=== PATIENT | male | born 1975 | race Caucasian/White ===

== ENCOUNTER 2016-08-14 11:19 | Emergency (ER) | payer OTHER ==
--- NOTE | 2016-08-14 12:34 | Emergency Department Record ---
Anxiety - General Chief Complaint: Anxiety Stated Complaint: ANXIETY Time Seen by Provider: 08/14/16 12:20 Source: Patient Mode of Arrival: Ambulatory - History of Present Illness Initial Comments: The patient admits he has been battling with depression since 2010 and is currently having a rougher time with anxiety at his job. this morning he was so worked up he vomited due to his anxiety and he wishes something for it. He is a patient of Dr. Kate and is scheduled to see her 08-22-16 for his ADHD. He denies suicidal thoughts or ideation, homicidal thoughts. HE wishes an excuse for his work today as well. Onset/Timin -: Days(s) Severity: Moderate Quality: Constant Provoking factors: None known, Work/job stress Improves With: Nothing Worsens With: Nothing Associated symptoms: Fever/chills - Related Data Home Medications: Home Medications Medication Instructions Recorded Confirmed Last Taken Hydroxyzine HCl 50 mg PO ASDIR PRN 08/14/16 08/14/16 Unknown Previous Rx's Medication Instructions Recorded Lorazepam [Ativan] 0.5 mg PO BID #10 tablet 08/14/16 Allergies/Adverse Reactions: Allergies Allergy/AdvReac Type Severity Reaction Status Date / Time No Known Drug Allergies Allergy Unverified 05/17/16 12:32 Travel Screening - Travel/Exposure Within Last 30 Days Have you traveled within the last 30 days?: No - Travel/Exposure Within Last Year Have you traveled outside the [place] in the last year?: No - Additonal Travel Details Have you been exposed to anyone with a communicable illness?: No - Travel Symptoms Symptom Screening: None Review of Systems Reviewed: No additional complaints except as noted below Constitutional: Reports: As per HPI. Denies: Chills, Fever, Malaise, Night sweats, Weakness, Weight change Eyes: Reports: As per HPI. Denies: Eye discharge, Eye pain, Photophobia, Vision change ENT: Reports: As per HPI. Denies: Congestion, Dental pain, Ear pain, Epistaxis , Hearing loss, Throat pain Respiratory: Reports: As per HPI. Denies: Cough, Dyspnea, Hemoptysis, Stridor, Wheezes Cardiovascular: Reports: As per HPI. Denies: Arrhythmia, Chest pain, Dyspnea on exertion, Edema, Murmurs, Orthopnea, Palpitations, Paroxysmal nocturnal dyspnea, Rheumatic Fever, Syncope Endocrine: Reports: As per HPI. Denies: Fatigue, Heat or cold intolerance, Polydipsia, Polyuria Gastrointestinal: Reports: As per HPI. Denies: Abdominal pain, Constipation, Diarrhea, Hematemesis, Hematochezia, Melena, Nausea, Vomiting Genitourinary: Reports: As per HPI. Denies: Dysuria, Frequency, Hematuria, Incontinence, Retention, Testicular pain, Testicular mass, Urgency Musculoskeletal: Reports: As per HPI. Denies: Arthralgia, Back pain, Gout, Joint swelling, Myalgia, Neck pain Skin: Reports: As per HPI. Denies: Bruising, Change in color, Change in hair/ nails, Lesions, Pruritus, Rash Neurological: Reports: As per HPI. Denies: Abnormal gait, Confusion, Headache, Numbness, Paresthesias, Seizure, Tingling, Tremors, Vertigo, Weakness Psychiatric: Reports: As per HPI. Denies: Anxiety, Auditory hallucinations, Depression, Homicidal thoughts, Suicidal thoughts, Visual hallucinations Hematological/Lymphatic: Reports: As per HPI. Denies: Anemia, Blood Clots, Easy bleeding, Easy bruising, Swollen glands Past Medical History - SOCIAL HISTORY Smoking Status: Current every day smoker Alcohol Use: Rare Drug Use: Heavy Drug Use Detail:: Marijuana - RESPIRATORY Hx Respiratory Disorders: No - CARDIOVASCULAR Hx Cardio Disorders: No - NEURO Hx Neuro Disorders: Yes Hx Seizures: Yes (2013) - GI Hx GI Disorders: Yes Hx Crohn's Disease: Yes - Hx Genitourinary Disorders: No - ENDOCRINE Hx Endocrine Disorders: No - MUSCULOSKELETAL Hx Musculoskeletal Disorders: No - PSYCH Hx Psych Problems: Yes Hx Anxiety: Yes Hx Depression: Yes Comment:: ADD - HEMATOLOGY/ONCOLOGY Hx Hematology/Oncology Disorders: No Family Medical History Any Significant Family History?: No Hx Diabetes: Father Hx Heart Disease: Mother Physical Exam - General General Appearance: Alert, Oriented x3, Cooperative, No acute distress, Anxious - Head Head exam: Normal inspection - Eye Eye exam: Normal appearance, PERRL Pupils: Normal accommodation - ENT ENT exam: Normal exam, Mucous membranes moist, Normal external ear exam, Normal orophraynx, TM's normal bilaterally Ear exam: Normal external inspection. negative: External canal tenderness Nasal Exam: Normal inspection. negative: Discharge, Sinus tenderness Mouth exam: Normal external inspection, Tongue normal Teeth exam: Normal inspection. negative: Dental caries Throat exam: Normal inspection. negative: Tonsillar erythema, Tonsillar exudate - Neck Neck exam: Normal inspection, Full ROM. negative: Tenderness - Respiratory Respiratory exam: Normal lung sounds bilaterally. negative: Respiratory distress - Cardiovascular Cardiovascular Exam: Regular rate, Normal rhythm, Normal heart sounds - GI/Abdominal GI/Abdominal exam: Soft, Normal bowel sounds. negative: Tenderness - Rectal Rectal exam: Deferred - exam: Deferred - Extremities Extremities exam: Normal inspection, Full ROM, Normal capillary refill. negative: Tenderness - Back Back exam: Reports: Normal inspection, Full ROM. Denies: Muscle spasm, Rash noted, Tenderness - Neurological Neurological exam: Alert, Normal gait, Oriented X3, Reflexes normal - Psychiatric Psychiatric exam: Normal affect, Normal mood - Skin Skin exam: Dry, Intact, Normal color, Warm Course Vital Signs 08/14/16 11:21 Temperature 97.9 F Pulse Rate 94 H Respiratory 24 Rate Blood Pressure 154/96 Pulse Ox 96 Medical Decision Making - Management Options MDM Management: No Additional Work-up Planned Disposition Disposition: Discharge Clinical Impression: Anxiety and depression Instructions: Social Anxiety Disorder (ED), Generalized Anxiety Disorder (ED), Depression (ED) Additional Instructions: Follow up with Dr. Piña as previously arranged without fail. Take ativan 0.5 mg twice daily IF NEEDED for anxiety. Off work today. [facility] phone numbers for emergency services for anxiety and depression. Prescriptions: Lorazepam [Ativan] 0.5 mg PO BID #10 tablet Forms: Patient Portal Access
== END 2016-08-14 12:55 | disposition home or self-care (01) ==
LOC: ER 11:19
DX: F41.8 Other specified anxiety disorders (principal); R11.11 Vomiting without nausea
CPT/HCPCS: 99282

== ENCOUNTER 2017-08-20 07:11 | Emergency (ER) | payer SELFPAY ==
[2017-08-20] MEDS ORDERED: ONDANSETRON HCL IV 4 MG/2 ML VIAL IVP ONE ×2 (07:19→10:43)
[2017-08-20] MEDS ORDERED: 0.9 % SODIUM CHLORIDE 1,000 ML BAG IV ONE (07:19)
[2017-08-20] MEDS ORDERED: MORPHINE SULFATE 4MG/ML PREFILLED SYRINGE IVP ONE (07:19)
--- NOTE | 2017-08-20 07:26 | Emergency Department Record ---
History of Present Illness - General Chief Complaint: Abdominal Pain Stated Complaint: ABD PAIN Time Seen by Provider: 08/20/17 07:18 Source: Patient Mode of Arrival: Ambulatory Limitations: No limitations - History of Present Illness Initial Comments: 42 yo male presents with abdominal pain, nausea, vomiting since 11pm. He states he has Crohn's that was diagnosed in 2006. He was treated at that time but states he did not tolerate the medications and has not been treated for about 10 years. No blood in the vomit or stools. His stools are firm and formed and very small. His last BM was this morning again firm, small. No history of abdominal surgery. No recent illness. No other cough, shortness of breath, chest pain or recent symptoms. His pain is crampy, sharp and mostly upper abdomen. No fever. MD Complaint: Abdominal pain -: Hour(s) Location: Epigastric Radiation: LUQ, RUQ Migration to: LUQ, RUQ Severity: Moderate Quality: Sharp Improves With: Nothing Worsens With: Nothing Associated Symptoms: Anorexia, Vomiting - Related Data Home Medications Medication Instructions Recorded Confirmed Last Taken No Home Med [NO HOME MEDS] 08/20/17 08/20/17 Unknown Allergies Allergy/AdvReac Type Severity Reaction Status Date / Time No Known Drug Allergies Allergy Verified 08/20/17 07:19 Travel Screening - Travel/Exposure Within Last 30 Days Have you traveled within the last 30 days?: No Review of Systems Constitutional: Denies: Chills, Fever, Malaise, Weakness Eyes: Denies: Eye discharge ENT: Denies: Congestion, Throat pain Respiratory: Denies: Cough, Dyspnea, Hemoptysis, Stridor, Wheezes Cardiovascular: Denies: Chest pain, Palpitations, Syncope Endocrine: Denies: Fatigue, Polydipsia, Polyuria Gastrointestinal: Reports: Abdominal pain, Nausea, Vomiting. Denies: Diarrhea Genitourinary: Denies: Dysuria, Frequency, Hematuria Musculoskeletal: Denies: Arthralgia, Back pain, Myalgia, Neck pain Skin: Denies: Bruising, Change in color, Rash Neurological: Denies: Confusion, Headache, Numbness, Weakness Psychiatric: Denies: Anxiety Hematological/Lymphatic: Denies: Blood Clots, Easy bleeding, Easy bruising, Swollen glands Past Medical History - SOCIAL HISTORY Smoking Status: Current every day smoker Alcohol Use: None Drug Use: Occasional Drug Use Detail:: Marijuana - RESPIRATORY Hx Respiratory Disorders: No - CARDIOVASCULAR Hx Cardio Disorders: No - NEURO Hx Neuro Disorders: Yes Hx Seizures: Yes (2013) - GI Hx GI Disorders: Yes Hx Crohn's Disease: Yes - Hx Genitourinary Disorders: No - ENDOCRINE Hx Endocrine Disorders: No - MUSCULOSKELETAL Hx Musculoskeletal Disorders: No - PSYCH Hx Psych Problems: Yes Hx Anxiety: Yes Hx Depression: Yes Comment:: ADD - HEMATOLOGY/ONCOLOGY Hx Hematology/Oncology Disorders: No Family Medical History Any Significant Family History?: Yes Hx Diabetes: Father Hx Heart Disease: Mother Physical Exam - General General Appearance: Alert, Oriented x3, Cooperative, No acute distress Limitations: No limitations - Head Head exam: Atraumatic, Normal inspection - Eye Eye exam: Normal appearance, PERRL. negative: Conjunctival injection, Scleral icterus - ENT ENT exam: Normal exam, Mucous membranes moist Ear exam: Normal external inspection Nasal Exam: Normal inspection Mouth exam: Normal external inspection Teeth exam: Normal inspection Throat exam: Normal inspection - Neck Neck exam: Normal inspection, Full ROM. negative: Tenderness - Respiratory Respiratory exam: Normal lung sounds bilaterally. negative: Respiratory distress, Rhonchi, Stridor, Wheezes - Cardiovascular Cardiovascular Exam: Regular rate, Normal rhythm, Normal heart sounds - GI/Abdominal GI/Abdominal exam: Soft, Tenderness (tender across the upper abdomen but very soft, no obvious mass). negative: Distended, Guarding, Rebound, Rigid - Rectal Rectal exam: Deferred - exam: Deferred - Extremities Extremities exam: Normal inspection, Full ROM, Normal capillary refill. negative: Tenderness - Back Back exam: Reports: Normal inspection, Full ROM. Denies: Muscle spasm, Rash noted, Tenderness - Neurological Neurological exam: Alert, Normal gait, Oriented X3 - Psychiatric Psychiatric exam: Normal affect, Normal mood - Skin Skin exam: Dry, Intact, Normal color, Warm Course Vital Signs 08/20/17 07:15 Pulse Rate 86 Respiratory 20 Rate Blood Pressure 146/110 Pulse Ox 100 - Reevaluation(s) Reevaluation #1: No prior abdominal imaging on the EMR 08/20/17 07:27 08/20/17 07:55 The labs were reviewed. WBC count is 14.7 The CMP was reviewed. Mild increase in AG otherwise negative Lipase is normal 08/20/17 10:[address] scan was reviewed. Abnormal dilated distal small bowel with a small bowel feces sign with fibro proliferative changes of the wall may be signs of Crohn's. 08/20/17 10:[address] with the radiologist and confirmed the patient has never had abdominal surgery. His right colon is not visible suggesting either congenital abscess or fistula from small bowel to large bowel from chronic inflammation. His pain and nausea continue. He will require further care and work up. Small bowel follow through / CT enterography possibly. No GI or surgery available at [facility] at this time I SW Dr Levi of at [facility] She will accept the patient for transfer and additional work up 08/20/17 10:43 The pain and nausea are returning Ofirmderick and Norberto ordered Waiting for a bed assignment at [facility] Dr Carlisle notified at the request of Dr Levi of a pending transfer and consultation. 08/20/17 11:17 I offered ambulance transport The patient declined He is stable for transport by car. He has been ambulatory to the bathroom. Stable. Medical Decision Making - Lab Data Result diagrams: 08/20/17 07:29 08/20/17 07:29 Disposition Disposition: Transfer Clinical Impression: Vomiting, Crohns disease, Abdominal pain Disposition: Acute Care Hospital Transfer Transfer To: [facility] Reason For Transfer: GI and Surgery consult Accepting Physician: Gurmeet Time Discussed w/Accepting Physician: 10:33 Condition: (2) Stable Forms: Patient Portal Access Time of Disposition: 10:33 Quality - Quality Measures Quality Measures: N/A - Blood Pressure Screening Does Patient Have Any of the Following: No Blood Pressure Classification: Hypertensive Reading Systolic Measurement: 146 Diastolic Measurement: 110 Screening for High Blood Pressure: < Pre-Hypertensive BP, F/U Documented > [ G8950] Pre-Hypertensive Follow-up Interventions: Referral to alternative/primary care provider.
[2017-08-20 07:36] LABS: HEMATOCRIT 45.1 % (42.0-52.0); HEMOGLOBIN 16.2 gm/dl (14.0-18.0); MEAN CELL VOLUME 87.1 fl (81-97); MEAN CORPUSCULAR HEMOGLOBIN 31.3 pg (27-33); MEAN CORPUSCULAR HGB CONC 35.9 g/dl (32-36); MEAN PLATELET VOLUME 9.7 fl (7.4-10.4); PLATELET COUNT 379 K/uL (130-400); RED BLOOD COUNT 5.18 M/uL (4.40-5.70); RED CELL DISTRIBUTION WIDTH 12.7 % (11.5-14.5); WHITE BLOOD COUNT W/O DIFF 14.7 K/uL (4.2-12.2)
[2017-08-20 07:46] LABS: BLOOD UREA NITROGEN 11 mg/dL (6-20); CREATININE 0.6 mg/dL (0.7-1.2); EST GLOMERULAR FILTRATION RATE > 60 mL/min; TOTAL PROTEIN 7.8 g/dL (6.6-8.7)
[2017-08-20 07:48] LABS: GLUCOSE,RANDOM 146 mg/dL (74-109)
[2017-08-20 07:51] LABS: ALB/GLOB RATIO 1.9 (1.1-1.8); ALBUMIN 5.1 g/dL (4.0-5.0); ALKALINE PHOSPHATASE 57 U/L (40-129); ALT/SGPT 35 U/L (<41); AST/SGOT 21 U/L (10.0-50.0); LIPASE 19 U/L (13-60)
[2017-08-20] MEDS ORDERED: PROMETHAZINE HCL 12.5 MG in 0.9 % SODIUM CHLORIDE 100ML 100 ML IVPB ONE (07:57)
[2017-08-20 10:42] LABS: URINE APPEARANCE CLEAR; URINE BILIRUBIN NEGATIVE (NEGATIVE); URINE BLOOD NEGATIVE (NEGATIVE); URINE COLOR YELLOW; URINE GLUCOSE (UA) NEGATIVE (NEGATIVE); URINE KETONE NEGATIVE (NEGATIVE); URINE LEUKOCYTE ESTERASE NEGATIVE (NEGATIVE); URINE NITRITE NEGATIVE (NEGATIVE); URINE PROTEIN NEGATIVE (NEGATIVE); URINE UROBILINOGEN 0.2 E.U./dL (0.20 - 1.00)
[2017-08-20] MEDS ORDERED: ACETAMINOPHEN 1,000 MG/100 ML BTL IVPB ONE (10:43)
--- NOTE | 2017-08-21 08:12 | CT SCAN REPORT ---
DATE: 08/21/2017. EXAM: CT OF THE ABDOMEN AND PELVIS. HISTORY: Vomiting. TECHNIQUE: CT of the abdomen and pelvis was performed following intravenous administration of 100 mL of Omnipaque 300 contrast. Oral contrast also utilized. COMPARISON: None. FINDINGS: Limited evaluation of the lung bases is unremarkable. Osseous structures are grossly intact. Fatty infiltrative change to the liver. The spleen, adrenal glands, pancreas, and kidneys are unremarkable. The gallbladder is present. There is a dilated loop of distal small bowel in the pelvis with evidence of small bowel feces sign. The loop measures up to 3.8 cm in diameter. In addition, there is abnormal mural stratification and wall thickening of this redundant loop of small bowel. However, there appear to be postsurgical changes with suggestion of right hemicolectomy changes. No prior examinations are available for comparison, and the patient states he has no history of colon surgery. Please correlate with the patient's history. Anastomosis associated with the distal loop of small bowel in the remaining colon is suggested. No free air or free fluid. 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 PROBABLE CHRONICALLY DILATED AND REDUNDANT LOOP OF SMALL BOWEL DISTALLY IN THE PELVIS. THERE IS A SMALL BOWEL FECES SIGN WITH AN ABNORMAL AREA OF WALL THICKENING OF THIS REDUNDANT LOOP OF SMALL BOWEL WITH ABNORMAL MURAL STRATIFICATION AND FIBROFATTY PROLIFERATION. THESE FINDINGS ARE LIKELY REFLECTIVE OF THE PATIENT'S CROHN'S DISEASE. HOWEVER, IN A DISTAL STRICTURE NEAR THE ANASTOMOTIC SITE IS NOT EXCLUDED. JOB NUMBER: [id number] [facility]
== END 2017-08-20 11:25 | disposition short-term general hospital (02) ==
LOC: ER 07:11
DX: K50.90 Crohn's disease, unspecified, without complications (principal); R10.13 Epigastric pain; R11.2 Nausea with vomiting, unspecified; F17.210 Nicotine dependence, cigarettes, uncomplicated
CPT/HCPCS: 99284 ×2; 96376; 96365; 96366; 96375; 96361; 83690; 80053; 81003; 85027; 74177; Q9967; J2405; J2274; J2550; J7030

== ENCOUNTER 2018-10-27 10:14 | Emergency (ER) | payer MEDICAID ==
[2018-10-27] MEDS ORDERED: 0.9 % SODIUM CHLORIDE 1,000 ML BAG IV ONE (10:22)
[2018-10-27] MEDS ORDERED: ONDANSETRON HCL IV 4 MG/2 ML VIAL IVP ONE (10:22)
[2018-10-27] MEDS ORDERED: KETOROLAC 30 MG/ML VIAL IVP ONE (10:22)
[2018-10-27] MEDS ORDERED: HYOSCYAMINE SULFATE ODT 0.125 MG TAB.SUBL SL ONE (10:23)
--- NOTE | 2018-10-27 10:30 | Emergency Department Record ---
History of Present Illness - General Chief Complaint: Abdominal Pain Stated Complaint: ABD PAIN Time Seen by Provider: 10/27/18 10:16 Source: Patient Mode of Arrival: Ambulatory Limitations: No limitations - History of Present Illness Initial Comments: 43 yo male presents with abdominal pain, nausea, without vomiting, loose stools with some streaks of blood that started this morning. He was diagnosed with Crohn's disease in 2006. He has not been treated for over 10 years. He has episodes of cramps, pain and nausea frequently and misses work. Last episode prior today was just over a year ago. He was seen at [facility] and transferred to [facility]. He does not have a PCP or GI. No fevers. No prior abdominal surgery. Otherwise he states his health has not changed. MD Complaint: Abdominal pain -: Hour(s) Location: Diffuse Radiation: None Migration to: Bilateral flank Severity: Severe Severity scale (1-10): 10 Quality: Cramping Consistency: Intermittent Improves With: Nothing Worsens With: Nothing Associated Symptoms: Diarrhea - Related Data Previous Rx's Medication Instructions Recorded Dicyclomine HCl [Bentyl] 10 mg PO Q8H #20 cap 10/27/18 Ondansetron [Zofran Odt] 4 mg PO Q8H #15 tab.rapdis 10/27/18 Allergies Allergy/AdvReac Type Severity Reaction Status Date / Time No Known Drug Allergies Allergy Verified 10/27/18 10:22 Travel Screening - Travel/Exposure Within Last 30 Days Have you traveled within the last 30 days?: No Review of Systems Constitutional: Denies: Chills, Fever, Malaise, Weakness Eyes: Denies: Eye discharge ENT: Denies: Congestion, Throat pain Respiratory: Denies: Cough, Dyspnea, Wheezes Cardiovascular: Denies: Chest pain, Edema, Syncope Endocrine: Denies: Fatigue, Polydipsia, Polyuria Gastrointestinal: Reports: Abdominal pain, Diarrhea, Hematochezia, Nausea. Denies: Constipation, Hematemesis, Melena, Vomiting Genitourinary: Denies: Dysuria, Frequency, Hematuria, Retention Musculoskeletal: Denies: Arthralgia, Back pain, Myalgia, Neck pain Skin: Denies: Bruising, Change in color, Rash Neurological: Denies: Headache Psychiatric: Denies: Anxiety Hematological/Lymphatic: Denies: Easy bleeding, Easy bruising Past Medical History - SOCIAL HISTORY Smoking Status: Current every day smoker Alcohol Use: None Drug Use: Occasional Drug Use Detail:: Marijuana - RESPIRATORY Hx Respiratory Disorders: No - CARDIOVASCULAR Hx Cardio Disorders: No - NEURO Hx Neuro Disorders: Yes Hx Seizures: Yes (2013) - GI Hx GI Disorders: Yes Hx Crohn's Disease: Yes - Hx Genitourinary Disorders: No - ENDOCRINE Hx Endocrine Disorders: No - MUSCULOSKELETAL Hx Musculoskeletal Disorders: No - PSYCH Hx Psych Problems: Yes Hx Anxiety: Yes Hx Depression: Yes Comment:: ADD - HEMATOLOGY/ONCOLOGY Hx Hematology/Oncology Disorders: No Family Medical History Any Significant Family History?: Yes Hx Diabetes: Father Hx Heart Disease: Mother Physical Exam - General General Appearance: Alert, Oriented x3, Cooperative, No acute distress Limitations: No limitations - Head Head exam: Atraumatic, Normal inspection - Eye Eye exam: Normal appearance, PERRL. negative: Conjunctival injection, Scleral icterus - ENT ENT exam: Normal exam, Mucous membranes moist, Normal orophraynx Ear exam: Normal external inspection Nasal Exam: Normal inspection Mouth exam: Normal external inspection - Neck Neck exam: Normal inspection - Respiratory Respiratory exam: Normal lung sounds bilaterally. negative: Respiratory distress, Rhonchi, Stridor, Wheezes - Cardiovascular Cardiovascular Exam: Regular rate, Normal rhythm, Normal heart sounds - GI/Abdominal GI/Abdominal exam: Soft, Normal bowel sounds, Tenderness (Very soft abdomen. No firmness. No mass. Vaguely tendern throughout the abdomen without one place being the most tender). negative: Rebound - Rectal Rectal exam: Deferred - exam: Deferred - Extremities Extremities exam: Normal inspection, Full ROM, Normal capillary refill. negative: Tenderness - Back Back exam: Reports: Normal inspection, Full ROM. Denies: CVA tenderness (R), CVA tenderness (L), Muscle spasm, Rash noted, Tenderness - Neurological Neurological exam: Alert, Normal gait, Oriented X3 - Psychiatric Psychiatric exam: Normal affect, Normal mood - Skin Skin exam: Dry, Intact, Normal color, Warm Course Vital Signs 10/27/18 10:18 Temperature 97.6 F Pulse Rate 88 Respiratory 20 Rate Blood Pressure 119/101 Pulse Ox 99 - Reevaluation(s) Reevaluation #1: 10/27/18 10:30 EMR reviewed from August 2017. The patient was evaluated for abdominal pain and transferred to [facility] for further work up. 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 10/27/18 11:07 The labs were reviewed. The WBC is 13.1 No acute changes with the CMP Lipase 62 10/27/18 12:28 The patient is comfortable waiting for CT results 10/27/18 13:[address] findings were discussed with the radiologist. Likely areas of some acute on chronic inflammation, distal SB borderline distension, no abscess, no free air, no fistulas, likely other smaller areas of less significant inflammation all consistent with his Crohn's. Left sided IVC. 10/27/18 13:14 We discussed the results of the tests and questions were answered at the time of discharge. The patient is doing well and is comfortable with DC. He has a 4pm appointment tomorrow with Shamika Aguirre NP. I did inform Shamika of today's tests and up coming O/P visit. She will help the patient with GI follow up DC vitals were reviewed. We discussed at length reasons to immediately return to the ED as well as close follow up. The patient will call the PCP for close follow up of this ED visit to review this visit and the tests performed Medical Decision Making - Lab Data Result diagrams: 10/27/18 10:30 10/27/18 10:30 Disposition Disposition: Discharge Clinical Impression: Abdominal pain Qualifiers: Abdominal location: unspecified location Qualified Code(s): R10.9 - Unspecified abdominal pain Crohns disease Qualifiers: Gastrointestinal tract location: unspecified location Digestive disease complication type: unspecified complication Qualified Code(s): K50.919 - Crohn's disease, unspecified, with unspecified complications Disposition: Home, Self-Care Condition: (2) Stable Instructions: Crohn Disease (ED) Additional Instructions: Follow up with your doctor tomorrow as scheduled Review this ER visit and the tests performed with your family doctor Return to the ER for a recheck if worse, any new concerns or questions Take the prescriptions provided as directed Prescriptions: Dicyclomine HCl [Bentyl] 10 mg PO Q8H #20 cap Ondansetron [Zofran Odt] 4 mg PO Q8H #15 tab.rapdis Referrals: SHAMIKA AGUIRRE N.P. [NURSE PRACTITIONER] - Forms: Patient Portal Access Time of Disposition: 13:16 Quality - Quality Measures Quality Measures: N/A - Blood Pressure Screening Does Patient Have Any of the Following: No Blood Pressure Classification: Hypertensive Reading Systolic Measurement: 119 Diastolic Measurement: 101 Screening for High Blood Pressure: < Pre-Hypertensive BP, F/U Documented > [G8950] Pre-Hypertensive Follow-up Interventions: Referral to alternative/primary care provider.
[2018-10-27 10:36] LABS: ABSOLUTE NEUTROPHIL COUNT 10.69; HEMATOCRIT 45.3 % (42.0-52.0); HEMOGLOBIN 15.8 gm/dl (14.0-18.0); MEAN CELL VOLUME 89.7 fl (81-97); MEAN CORPUSCULAR HEMOGLOBIN 31.3 pg (27-33); MEAN CORPUSCULAR HGB CONC 34.9 g/dl (32-36); MEAN PLATELET VOLUME 9.2 fl (7.4-10.4); PLATELET COUNT 415 K/uL (130-400); RED BLOOD COUNT 5.05 M/uL (4.40-5.70); RED CELL DISTRIBUTION WIDTH 12.8 % (11.5-14.5); WHITE BLOOD COUNT W/O DIFF 13.1 K/uL (4.2-12.2)
[2018-10-27 10:43] LABS: PLATELET ESTIMATE NORMAL (NORMAL)
[2018-10-27 10:46] LABS: BLOOD UREA NITROGEN 11 mg/dL (6-20); CREATININE 0.7 mg/dL (0.7-1.2); EST GLOMERULAR FILTRATION RATE > 60 mL/min
[2018-10-27 10:47] LABS: LIPASE 62 U/L (13-60); TOTAL PROTEIN 7.5 g/dL (6.6-8.7)
[2018-10-27 10:49] LABS: GLUCOSE,RANDOM 105 mg/dL (74-109)
[2018-10-27 10:51] LABS: ALT/SGPT 27 U/L (<41); AST/SGOT 20 U/L (10.0-50.0)
[2018-10-27 10:52] LABS: ALKALINE PHOSPHATASE 57 U/L (40-129)
[2018-10-27] MEDS ORDERED: METHYLPREDNISOLONE PF 125MG/VIAL IVP ONE (13:07)
--- NOTE | 2018-10-29 10:54 | CT SCAN REPORT ---
EXAM: CT OF THE ABDOMEN AND PELVIS WITH CONTRAST HISTORY: ABDOMINAL CRAMPING WITH BLOODY DIARRHEA TODAY. HISTORY OF CROHN'S DISEASE. TECHNIQUE: Following oral and intravenous contrast administration, helical CT examination of the abdomen and pelvis was performed including delayed images through the kidneys with 95 ml of Omnipaque 300 utilized. Comparison: CT abdomen and pelvis with contrast dated 08/20/17. FINDINGS: Patchy opacities within the dependent lung bases are identified consistent with atelectasis. No suspicious lung base consolidation, pleural effusion or pericardial effusion. The heart is not enlarged. Mild diffuse hepatic steatosis is redemonstrated with a small area of sparing within the central aspect of the medial segment of the left liver lobe, stable. No new suspicious focal hepatic abnormality. The spleen, pancreas, adrenal glands, and kidneys remain normal in appearance. The gallbladder is unremarkable and no biliary ductal dilatation is seen. No intraabdominal nor retroperitoneal lymphadenopathy. 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 At the renal vasculature it crosses anterior to the abdominal aorta with its final position right of midline at the level of the right renal vein. This pattern is stable. The vasculature is otherwise normal in appearance. No new pelvic mass, lymphadenopathy, or free pelvic fluid. No intrinsic urinary bladder abnormality is seen. Mild fat density prominence in each inguinal canal redemonstrated consistent with spermatic cord lipomas or fat within small inguinal hernia sacs. There is again noted congenital malrotation/nonrotation of bowel with the majority of small bowel located in the right abdomen and the majority of colon within the left abdomen. The ileocecal valve is located in the left lower quadrant. There is redemonstration of a relatively long segment of mild wall thickening of the terminal ileum primarily caused by prominent fibrofatty proliferation likely due to chronic inflammation. There does appear to be mild mucosal hyperenhancement within this segment raising the possibility of active inflammation. There is, however, no congestion of adjacent vasculature nor mesenteric fat stranding. Just proximal to this segment of thickening, there is fluid distention of small bowel. This segment of fluid distention is borderline dilated. There is likely an additional more proximal segment of small bowel which appears to have prominence of mucosal fat and mild mucosal hyperenhancement. This appearance may just relate to incomplete distention though mild active inflammation in this region would be difficult to exclude. The remaining small bowel is normal in appearance. The colon is not distended limiting its evaluation. No new lytic or blastic bone lesion. There are mild degenerative changes of the lower lumbar spine. IMPRESSION: 1. CONGENITAL MALROTATION/NONROTATION OF BOWEL WITH THE MAJORITY OF THE SMALL BOWEL ON THE RIGHT AND THE MAJORITY OF THE COLON ON THE LEFT. THE ILEOCECAL VALVE IS DEMONSTRATED WITHIN THE LEFT LOWER QUADRANT. 2. ABNORMAL SEGMENT OF TERMINAL ILEUM, DESCRIBED ABOVE LIKELY RELATES TO MILD ACUTE INFLAMMATION SUPERIMPOSED ON CHRONIC INFLAMMATION. THERE IS A HISTORY OF CROHN'S DISEASE. THERE IS NO ASSOCIATED MESENTERITIS, ABSCESS, NOR FISTULA. JUST PROXIMAL TO THIS SEGMENT OF WALL THICKENING THE SMALL BOWEL IS BORDERLINE DILATED WITH FLUID. THERE MAY BE A MORE PROXIMAL SEGMENT OF SMALL BOWEL WITH MINOR INFLAMMATORY CHANGE VERSUS LACK OF DISTENTION. 3. LEFT SIDED IVC REDEMONSTRATED. 4. MILD DIFFUSE HEPATIC STEATOSIS. JOB NUMBER: [id number] [facility]
== END 2018-10-27 13:35 | disposition home or self-care (01) ==
LOC: ER 10:14
DX: K50.919 Crohn's disease, unspecified, with unspecified complications (principal); R10.84 Generalized abdominal pain; R19.7 Diarrhea, unspecified; R11.0 Nausea; F17.210 Nicotine dependence, cigarettes, uncomplicated
CPT/HCPCS: 74177; 80053; 83690; 85027; 96361; 96374; 96375; 99284; J1885; J2405; J2930; J7030

== ENCOUNTER 2019-06-13 07:24 | Emergency (ER) | payer MEDICAID ==
--- NOTE | 2019-06-13 07:44 | Emergency Department Record ---
History of Present Illness - General Chief complaint: ENT Stated complaint: EAR HURTS Time Seen by Provider: 06/13/19 07:43 Source: Patient Mode of Arrival: Ambulatory Limitations: No limitations - History of Present Illness Initial comments: pt has multiple complaints. first is that he cut his r finger on a lightbulb last pm and he feels it still has glass in it. 2 is he had pinkish draining from his ear this am. 3 he has been sick with uri and has been on augmentin but still has a cough MD complaint: Foreign body, Other Onset/Timin -: Days(s) Location: L ear Consistency: Constant Associated Symptoms: Cough, Discharge from ear - Related Data Home Medications Medication Instructions Recorded Confirmed Last Taken Amoxicillin/Potassium Clav 1 tab PO BID 06/13/19 06/13/19 06/13/19 [Amox-Clav 875-125 mg Tablet] Previous Rx's Medication Instructions Recorded Doxycycline Hyclate 100 mg PO BID #14 tab 06/13/19 Allergies Allergy/AdvReac Type Severity Reaction Status Date / Time No Known Drug Allergies Allergy Verified 06/13/19 07:36 Travel/Exposure Screening - Travel/Exposure Within Last 30 Days Have you traveled within the last 30 days?: No - Travel/Exposure Within Last Year Have you traveled outside the [place] in the last year?: No - Additonal Travel/Exposure Details Have you been exposed to anyone with a communicable illness?: No Review of Systems Constitutional: Denies: Chills, Fever, Malaise, Night sweats ENT: Reports: Congestion, Ear pain. Denies: Dental pain, Epistaxis, Hearing loss Respiratory: Reports: Cough Cardiovascular: Denies: Arrhythmia, Chest pain, Palpitations, Rheumatic Fever Endocrine: Denies: Fatigue, Heat or cold intolerance Gastrointestinal: Denies: Abdominal pain, Nausea, Vomiting Genitourinary: Denies: Discharge, Dysuria, Frequency Musculoskeletal: Denies: Arthralgia, Back pain Skin: Denies: Bruising Neurological: Denies: Abnormal gait, Confusion, Headache Psychiatric: Denies: Anxiety, Auditory hallucinations, Visual hallucinations Hematological/Lymphatic: Denies: Anemia, Blood Clots, Easy bleeding Past Medical History - SOCIAL HISTORY Smoking Status: Current every day smoker Alcohol Use: Rare Drug Use: Heavy Drug Use Detail:: Marijuana - RESPIRATORY Hx Respiratory Disorders: No - CARDIOVASCULAR Hx Cardio Disorders: No - NEURO Hx Neuro Disorders: Yes Hx Seizures: Yes (2013) - GI Hx GI Disorders: Yes Hx Crohn's Disease: Yes - Hx Genitourinary Disorders: No - ENDOCRINE Hx Endocrine Disorders: No - MUSCULOSKELETAL Hx Musculoskeletal Disorders: No - PSYCH Hx Psych Problems: Yes Hx Anxiety: Yes Hx Depression: Yes Comment:: ADD - HEMATOLOGY/ONCOLOGY Hx Hematology/Oncology Disorders: No Family Medical History Any Significant Family History?: No Hx Diabetes: Father Hx Heart Disease: Mother Physical Exam - General General Appearance: Alert, Oriented x3, Cooperative, No acute distress - Head Head exam: Normal inspection - Eye Eye exam: Normal appearance, PERRL, EOMI Pupils: Normal accommodation - ENT ENT exam: Normal exam, Mucous membranes moist, Normal external ear exam, Normal orophraynx, TM's normal bilaterally Ear exam: Normal external inspection. negative: External canal tenderness Nasal Exam: Normal inspection. negative: Discharge, Sinus tenderness Mouth exam: Normal external inspection, Tongue normal Teeth exam: Normal inspection. negative: Dental caries Throat exam: Normal inspection. negative: Tonsillar erythema, Tonsillar exudate - Neck Neck exam: Normal inspection, Full ROM. negative: Tenderness - Respiratory Respiratory exam: Normal lung sounds bilaterally. negative: Respiratory distress - Cardiovascular Cardiovascular Exam: Regular rate, Normal rhythm, Normal heart sounds - GI/Abdominal GI/Abdominal exam: Soft, Normal bowel sounds. negative: Tenderness - Rectal Rectal exam: Deferred - exam: Deferred - Extremities Extremities exam: Normal inspection, Full ROM, Normal capillary refill, Tenderne ss Image of Hand: 1 - superficial lac - Back Back exam: Reports: Normal inspection, Full ROM. Denies: Muscle spasm, Rash noted, Tenderness - Neurological Neurological exam: Alert, CN II-XII intact, Normal gait, Oriented X3 - Psychiatric Psychiatric exam: Normal affect, Normal mood - Skin Skin exam: Dry, Intact, Normal color, Warm Course Vital Signs 06/13/19 07:26 Temperature 98.4 F Pulse Rate 102 H Respiratory 18 Rate Blood Pressure 136/106 Pulse Ox 97 Medical Decision Making - Lab Data Result diagrams: 06/13/19 08:05 Disposition Disposition: Discharge Clinical Impression: Upper respiratory infection Qualifiers: URI type: unspecified URI Qualified Code(s): J06.9 - Acute upper respiratory infection, unspecified Disposition: Home, Self-Care Condition: (1) Good Additional Instructions: follow up with family doctor. return sooner if worse. Prescriptions: Doxycycline Hyclate 100 mg PO BID #14 tab Forms: Patient Portal Access Quality - Quality Measures Quality Measures: N/A - Blood Pressure Screening Does Patient Have Any of the Following: No Blood Pressure Classification: Hypertensive Reading Systolic Measurement: 136 Diastolic Measurement: 106 Screening for High Blood Pressure: < First Hypertensive BP, F/U Documented > [G8950] First Hypertensive Follow-up Interventions: Follow-up with rescreen GT 1 day and LT 4 weeks.
[2019-06-13 08:13] LABS: ABSOLUTE NEUTROPHIL COUNT 7.37; HEMATOCRIT 45.6 % (42.0-52.0); HEMOGLOBIN 15.4 gm/dl (14.0-18.0); MEAN CELL VOLUME 89.9 fl (81-97); MEAN CORPUSCULAR HEMOGLOBIN 30.4 pg (27-33); MEAN CORPUSCULAR HGB CONC 33.8 g/dl (32-36); PLATELET COUNT 446 K/uL (130-400); RED BLOOD COUNT 5.07 M/uL (4.40-5.70); RED CELL DISTRIBUTION WIDTH 13.1 % (11.5-14.5); WHITE BLOOD COUNT W/O DIFF 16.1 K/uL (4.2-12.2)
--- NOTE | 2019-06-13 08:27 | RADIOLOGY REPORT ---
EXAMINATION: Right Thumb, Minimum Two Views EXAM DATE: 06/13/2019 8:24 AM TECHNIQUE: PA, lateral, and oblique views INDICATION: foreign body COMPARISON: None ENCOUNTER: Initial FINDINGS: Normal bony architecture. No acute fracture or dislocation. No radiopaque foreign body. IMPRESSION: Normal exam. Follow-up MRI if symptoms persist Dictated by: Patricio Cash MD on 06/13/2019 8:25 AM. .
--- NOTE | 2019-06-13 08:28 | RADIOLOGY REPORT ---
EXAMINATION: Two View Chest Radiographs EXAM DATE: 06/13/2019 8:23 AM TECHNIQUE: Frontal and lateral views INDICATION: cough COMPARISON: None ENCOUNTER: Not applicable FINDINGS: The heart, mediastinum, and pulmonary vasculature are normal. No lung consolidation or pleural effu sions are present. IMPRESSION: No acute abnormality Dictated by: Patricio Cash MD on 06/13/2019 8:26 AM. .
== END 2019-06-13 09:08 | disposition home or self-care (01) ==
LOC: ER 07:24
DX: S61.214A Laceration without foreign body of right ring finger without damage to nail, initial encounter (principal); J06.9 Acute upper respiratory infection, unspecified; R05 Cough; W26.8XXA Contact with other sharp object(s), not elsewhere classified, initial encounter; F17.210 Nicotine dependence, cigarettes, uncomplicated
CPT/HCPCS: 71046; 73140; 85027; 99284